=== PATIENT | female | born 1955 | race Two or more races ===

== ENCOUNTER 2021-08-04 10:39 | Emergency (ER) | payer OTHER ==
[~2021-08-04] VITALS: Ht 154.9 cm; Wt 80.7 kg
[2021-08-04 10:45] VITALS: BP 135/89
== END 2021-08-04 11:54 | disposition home or self-care (01) ==
LOC: ER 10:39
DX: I83.92 Asymptomatic varicose veins of left lower extremity (principal); I10 Essential (primary) hypertension